=== PATIENT | male | born 1965 | race African-American/Black ===

== ENCOUNTER 2022-09-21 00:17 | Emergency (ER) | payer OTHER, SELFPAY ==
[2022-09-21 00:38] VITALS: BP 120/88; PULSE 74; RESP 14; TEMP 36.5; O2SAT 96
--- NOTE | 2022-09-21 02:52 | ED.GENADULT ---
HPI - General Adult General Chief complaint: Back Pain/Injury Stated complaint: back pain, fell down four stairs Time Seen by Provider: 09/21/22 02:13 History of Present Illness HPI narrative: this is a 57-year-old male presenting to ED with lower back pain. He got a new kitten and was walking on the stairs and tried to not step on it and ended up falling onto his butt and sliding down 5 stairs. He now has pain in his left sacroiliac region. It is worse with movement. It is improving. He took some Motrin at home. Patient does not have any urinary retention or bowel incontinence. No weakness to his legs. Related Data Allergies Allergy/AdvReac Type Severity Reaction Status Date / Time Penicillins Allergy Unknown Unknown Verified 12/18/18 21:15 [facility] Past Medical History Medical History Diabetes Exam Narrative: APPEARANCE: No apparent distress. Patient is well-appearing Head: atraumatic. EYES: EOMI, NOSE: Atraumatic NECK: Trachea midline RESPIRATORY: No increased rate of breathing CARDIOVASCULAR: RRR, ABDOMINAL: Non-distended MUSCULOSKELETAl: no midline spinal tenderness. Tenderness to palpation over the left Paralumbar muscles, patient is able ambulate without difficulty. NEURO: Alert. Moving 4/4 extremities SKIN:: Warm, dry. Normal color PSYCHIATRIC: Normal affect Course Vital Signs Vital signs: Vital Signs Temperature 97.7 F 09/21/22 00:38 Pulse Rate 74 09/21/22 00:38 Respiratory Rate 14 09/21/22 00:38 Blood Pressure 120/88 09/21/22 00:38 Pulse Oximetry 96 09/21/22 00:38 Oxygen Delivery Room Air 09/21/22 00:38 Temperature 97.7 F 09/21/22 00:38 Pulse Rate 74 09/21/22 00:38 Respiratory Rate 14 09/21/22 00:38 Blood Pressure 120/88 09/21/22 00:38 Pulse Oximetry 96 09/21/22 00:38 Oxygen Delivery Room Air 09/21/22 00:38 Medical Decision Making [facility] [place] Narrative Medical decision making narrative: -Presentation: 57-year-old male presenting with lower back pain after he fell onto his buttocks and slid down 5 steps. His exam is normal. -DDX includes but is not limited to: lower back pain, lower back spasm -Co-morbidities complicating care: diabetes -Social determinants of health[place] with [place] and kids -External Chart Review: none -Hx from independent Sources: none -Discussion of Management/Consultants: none -Independent interpretation of studies: none Dx tests considered but not ordered: none - Procedures: none -Interventions:[place] 5 mg, Tylenol, lidocaine, Robaxin -Shared decision making / Disposition: patient was discharged with symptomatic treatment. Given primary care follow-up. -RX Motrin, Tylenol, Robaxin Vital Signs Vital Signs: Vital Signs Temperature 97.7 F 09/21/22 00:38 Pulse Rate 74 09/21/22 00:38 Respiratory Rate 14 09/21/22 00:38 Blood Pressure 120/88 09/21/22 00:38 Pulse Oximetry 96 09/21/22 00:38 Oxygen Delivery Room Air 09/21/22 00:38 Temperature 97.7 F 09/21/22 00:38 Pulse Rate 74 09/21/22 00:38 Respiratory Rate 14 09/21/22 00:38 Blood Pressure 120/88 09/21/22 00:38 Pulse Oximetry 96 09/21/22 00:38 Oxygen Delivery Room Air 09/21/22 00:38 Discharge Plan Discharge Clinical Impression: Strain of lumbar region Patient Disposition: Home, Self-Care Condition: Stable Instructions: Antibiotic Form, Acute Low Back Pain (ED) Additional Instructions: please take Motrin and Tylenol Robaxin for pain control. Please return if your pain becomes unbearable you develop weakness severe legs, urinary retention or bowel incontinence. Prescriptions: New acetaminophen 500 mg tablet 1,000 mg PO TID PRN (Reason: khadra) 7 Days Qty: 42 0RF ibuprofen 800 mg tablet 800 mg PO TID PRN (Reason: pain) 7 Days Qty: 21 0RF methocarbamol 750 mg tablet 1,500 mg
[2022-09-21] MEDS: HYDROcodone/acetaminophen (*CRX) 5-325 MG TABLET 1 TAB PO (02:58)
[2022-09-21] MEDS: LIDOCAINE 5% PATCH 1 PATCH TRANSDERM (02:58)
[2022-09-21] MEDS: methocarbamoL 750 MG TABLET PO (02:58)
[2022-09-21 03:35] VITALS: BP 140/88; PULSE 88; RESP 20; O2SAT 98
== END 2022-09-21 03:36 | disposition home or self-care (01) ==
LOC: ANHED 03:08
PROVIDERS: Emergency Provider Emergency Medicine
DX: S39.012A Strain of muscle, fascia and tendon of lower back, initial encounter (principal); W10.9XXA Fall (on) (from) unspecified stairs and steps, initial encounter; E11.9 Type 2 diabetes mellitus without complications
CPT/HCPCS: 99283; A9270